=== PATIENT | female | born 1980 | race Two or more races ===

== ENCOUNTER 2017-05-21 15:20 | Outpatient (CLI) | payer OTHER ==
[~2017-05-21] VITALS: Ht 154.9 cm; Wt 60.9 kg
[2017-05-21 15:08] VITALS: BP 129/64; PULSE 89; RESP 16; Ht 154.9 cm; Wt 60.9 kg
[2017-05-21] MEDS ORDERED: IBUP-1542 PO (15:23)
--- NOTE | 2017-05-21 15:57 | PN ---
Date/Time of Note Date/Time of Note DATE: 05/21/17 TIME: 15:52 Outpatient Progress Note Chief Complaint Chest pain/hyperlipidemia HPI Chest pain/patient was recently hospitalized with a chest pain, pain upper part of the chest mostly on left side, pain radiates to back, and head, patient has constant headache, patient also has pain when patient turns around, from side-to -side, the pain will radiate to back, but does not go to the head, patient was started on Motrin, has not helped the patient, no history of any heartburn, no history of any alcohol or history of fall or injury, patient was recently diagnosed with costochondritis, Hyperlipidemia/no xanthoma, no abdominal pain, Review of Systems Const: No Fever, no chills, no Wt. loss, no Fatigue, normal appetite, no diaphoresis. Eyes: No pain, no discharge, no redness, no visual change, no foreign body. ENT: No pain, no bleeding, no congestion, no sore throat, no dysphagia, no discharge or rhinitis. Lymph: No adenopathy, no tender nodes, no lymphedema. Resp: No SOB, no cough, no sputum, no wheezing, no chest pain. CV: Left upper chest pain, no palpitaions, no ALEXANDER, no PND, no edema. GI: Normal appetite, no pain, no nausea, no vomiting, no diarrhea, no blood, no constipation. : No frequency, no urgency, no dysuria, no hematuria, no flank pain, no discharge, no bleeding. Musc:, no back pain, no neck pain, no knee pain, no restricted ROM. Skin: No rash, no skin lesions, no erythema, no laceration, no bruising, no pruritus. Neuro: Mild to moderate PALENCIA off-and-on, not relieved with Motrin,, no dizziness, no syncope, no seizure, no focal-weakness. Endo: No polyuria, no polydypsia, no dry-skin, no temp-intolerance. Psych: No hallucinations, no depression, no anxiety, no suicidal ideation. Ext: No edema, no pain, no ulcer, no weakness. Physical Exam Vital Signs Date Time Temp Pulse Resp B/P Pulse Ox O2 Delivery O2 Flow Rate FiO2 05/21/17 15:08 98.1 89 16 129/64 100 Room Air General Appearance: A 36 year-old female who appears well-developed, well- nourished, in no acute distress. HEENT: Head normocephalic, atraumatic. Pupils equal, round, reactive to light and accommodate. Sclerae are no jaundice. Nasal turbinates pink without erythema or nasal discharge. Mucous membranes pink and moist without lesions. Oropharynx clear without any exudate or discharge. NECK: Supple. Trachea midline, No thyromegaly, No cervical lymphadenopathy, No mass, No carotid bruits, No JVD, Carotid pulses 2+ bilaterally. PULMONARY: Clear to auscultaion bilaterally, No retractions, Chest expansion symmetric bilaterally, no rales, no ronchi, no dulness on percussion. CARDIAC: Normal SI and S2, Regular rate and rythm, no murmur, gallop, or rub. GASTROINTESTINAL: Abdomen is soft, non-tender, Non Rigid, No distention, Positive bowel sounds x4 quadrants, Liver normal. SKIN: Warm, dry, no rash, no bruise, no echmosis. EXTREMITIES: Bilateral lower extremities normal, no edema, no phlabitus, pulse palpable, no contracture. MUSCULOSKELETAL: Patient has pain on the chest at the second and third rib, mostly on left side, pain is producible with local pressure, patient also has same pain with deep inspiration, and coughing and sneezing, spine Normal, Non- tender, Normal range of motion, No swelling, no deformity, no clubbing, or cyanosis, the patient has no edema to bilateral lower extremities, dorsalis pedis pulses palpable bilaterally. NEUROLOGIC: The patient is awake, alert, oriented, responding to yes/no questions appropriately, moving all extremities, cranial nerve intact, normal strenght, normal power, normal coordination, normal gait. Allergies Coded Allergies: No Known Allergy (Unverified , 06/20/14) PMH Chest pain/costochondritis Hyperlipidemia Social Hx No smoking no drinking, Family Hx Noncontributory Assessment/Plan Impression Chest pain/costochondritis Hyperlipidemia Plan Patient has been worked up with a chest pain, patient has typical costochondritis, patient education done, patient encouraged to continue her Motrin, Patient unable to sleep at night because of pain, and pain is moderately severe , will start Ultram 50 mg nightly, #15 Patient encouraged with the follow with the primary care physician, Patient to follow for hyperlipidemia, Medications Home Meds Reported Medications Ibuprofen* (Ibuprofen*) 600 Mg Tablet, 600 MG PO Q8 Y for PAIN LEVEL 1-5, TAB 05/21/17 FAHAD LEONE MD May 21, 2017 15:57
== END 2017-05-21 16:52 | disposition home or self-care (01) ==
LOC: DCC 15:20
PROVIDERS: ATTEND Internal Medicine
DX: R07.9 Chest pain, unspecified (principal); E78.5 Hyperlipidemia, unspecified; M94.0 Chondrocostal junction syndrome [Tietze]

== ENCOUNTER 2017-06-04 14:41 | Outpatient (CLI) | payer OTHER ==
[~2017-06-04] VITALS: Ht 154.9 cm; Wt 60.5 kg
[~2017-06-04 14:41] MED LIST: IBUP-1542 PO
[2017-06-04 14:47] VITALS: BP 126/74; PULSE 90; RESP 16; Ht 154.9 cm; Wt 60.5 kg
--- NOTE | 2017-06-04 15:08 | PN ---
Date/Time of Note Date/Time of Note DATE: 06/04/17 TIME: 15:04 Outpatient Progress Note Chief Complaint Chest pain/costochondritis/hyperlipidemia HPI Chest pain/patient complained of chest pain, precordial, mostly on left side, no radiation, no diaphoresis, no increased with activity, patient pain more on movements, no back pain, no shoulder pain, no history of any DE, Costochondritis/patient has a pain in the left side of the sternum, increased with the pressure, not much relief with the Motrin 400 mg 3 times daily, and Ultram, Hyperlipidemia/no xanthoma, no abdominal pain, Review of Systems Const: No Fever, no chills, no Wt. loss, no Fatigue, normal appetite, no diaphoresis. Eyes: No pain, no discharge, no redness, no visual change, no foreign body. ENT: No pain, no bleeding, no congestion, no sore throat, no dysphagia, no discharge or rhinitis. Lymph: No adenopathy, no tender nodes, no lymphedema. Resp: No SOB, no cough, no sputum, no wheezing, no chest pain. CV: Left-sided chest pain, no palpitaions, no ALEXANDER, no PND, no edema. GI: Normal appetite, no pain, no nausea, no vomiting, no diarrhea, no blood, no constipation. : No frequency, no urgency, no dysuria, no hematuria, no flank pain, no discharge, no bleeding. Musc: No bone/joint pain, no back pain, no neck pain, no knee pain, no restricted ROM. Skin: No rash, no skin lesions, no erythema, no laceration, no bruising, no pruritus. Neuro: No PALENCIA, no dizziness, no syncope, no seizure, no focal-weakness. Endo: No polyuria, no polydypsia, no dry-skin, no temp-intolerance. Psych: No hallucinations, no depression, no anxiety, no suicidal ideation. Ext: No edema, no pain, no ulcer, no weakness. Physical Exam General Appearance: A 36 year-old female who appears well-developed, well- nourished, in no acute distress. HEENT: Head normocephalic, atraumatic. Pupils equal, round, reactive to light and accommodate. Sclerae are no jaundice. Nasal turbinates pink without erythema or nasal discharge. Mucous membranes pink and moist without lesions. Oropharynx clear without any exudate or discharge. NECK: Supple. Trachea midline, No thyromegaly, No cervical lymphadenopathy, No mass, No carotid bruits, No JVD, Carotid pulses 2+ bilaterally. PULMONARY: Clear to auscultaion bilaterally, No retractions, Chest expansion symmetric bilaterally, no rales, no ronchi, no dulness on percussion. CARDIAC: Normal SI and S2, Regular rate and rythm, no murmur, gallop, or rub. GASTROINTESTINAL: Abdomen is soft, non-tender, Non Rigid, No distention, Positive bowel sounds x4 quadrants, Liver normal. SKIN: Warm, dry, no rash, no bruise, no echmosis. EXTREMITIES: Bilateral lower extremities normal, no edema, no phlabitus, pulse palpable, no contracture. MUSCULOSKELETAL: Patient has left-sided chest wall pain, mostly on the medial side next to the sternum, on third fourth fifth rib junction, pain reproducible by local pressure, spine Normal, Non-tender, Normal range of motion, No swelling , no deformity, no clubbing, or cyanosis, the patient has no edema to bilateral lower extremities, dorsalis pedis pulses palpable bilaterally. NEUROLOGIC: The patient is awake, alert, oriented, responding to yes/no questions appropriately, moving all extremities, cranial nerve intact, normal strenght, normal power, normal coordination, normal gait. Allergies Coded Allergies: No Known Allergy (Unverified , 06/20/14) PMH Change Social Hx No change Family Hx No change Assessment/Plan Impression Chest pain/costochondritis Hyperlipidemia Plan Patient education done about heart problem and costochondritis, patient has been taking Motrin and Ultram without much relief, Patient will be started on Naprosyn 500 mg twice daily #60 and Patient will be also started on Protonix or equivalent 40 mg daily, #30 Patient encouraged to follow with the primary care physician, Medications Home Meds Reported Medications Ibuprofen* (Ibuprofen*) 600 Mg Tablet, 600 MG PO Q8 Y for PAIN LEVEL 1-5, TAB 05/21/17 FAHAD LEONE MD Jun 04, 2017 15:08
== END 2017-06-04 16:42 | disposition home or self-care (01) ==
LOC: DCC 14:41
PROVIDERS: ATTEND Internal Medicine
DX: R07.9 Chest pain, unspecified (principal); E78.5 Hyperlipidemia, unspecified; M94.0 Chondrocostal junction syndrome [Tietze]